=== PATIENT | female | born 1975 | race Caucasian/White ===

== ENCOUNTER 2017-07-02 02:34 | Inpatient (IN) | payer MEDICAID, OTHER ==
[~2017-07-02] VITALS: Ht 170.2 cm; Wt 87.2 kg
[~2017-07-02 02:34] MED LIST: BUSP15TA3 PO; FER300L PO; HYDR-3965 PO; Ibuprofen PO; MULT9LIQ PO; POTA20LI PO; ZOLP5TAB2 PO
[2017-07-02] MEDS ORDERED: normal saline 1000ML IV soln IVB ONE ×2 (03:00→06:45)
[2017-07-02 05:49] LABS: BASOPHILS % (AUTO) 0.3 % (0-1); EOSINOPHILS # (AUTO) 0.2 X10'3 (0-0.9); EOSINOPHILS % (AUTO) 1.1 % (0-6); HEMATOCRIT 46.1 % (35.0-45.0); LYMPHOCYTES # (AUTO) 0.8 X10'3 (1.1-4.8); LYMPHOCYTES % (AUTO) 4.5 % (21-51); MEAN CORPUSCULAR HEMOGLOBIN 29.2 PG (27.0-31.0); MEAN CORPUSCULAR HGB CONC 34.7 % (33.0-36.5); MEAN PLATELET VOLUME 6.7 FL (7.4-10.4); MONOCYTES # (AUTO) 1.2 X10'3 (0-0.9); MONOCYTES % (AUTO) 6.8 % (2-12); NEUTROPHILS # (AUTO) 15.2 X10'3 (1.8-7.7); NEUTROPHILS % (AUTO) 87.3 % (42-75); PLATELET COUNT 134 X10'3 (140-440); RED BLOOD COUNT 5.48 X10'6 (4.20-5.60); WHITE BLOOD COUNT 17.4 X10'3 (4.5-11.0)
[2017-07-02] MEDS ORDERED: ondansetron/PF 4mg/2ml inj IV ONE (06:05)
[2017-07-02 06:15] LABS: ALANINE AMINOTRANSFERASE 134 U/L (12-78); ALBUMIN 2.7 G/DL (3.4-5.0); ALBUMIN/GLOBULIN RATIO 0.9 (1.1-1.5); ALKALINE PHOSPHATASE 245 IU/L (46-116); ANION GAP 17 (8-16); ASPARTATE AMINO TRANSFERASE 650 U/L (10-37); BLOOD UREA NITROGEN 19 MG/DL (7-18); CALCIUM 6.7 MG/DL (8.5-10.1); CHLORIDE 100 MMOL/L (99-107); GLUCOSE 148 MG/DL (70-104); LIPASE 1469 U/L (73-393); SODIUM 133 MMOL/L (135-145); TOTAL CARBON DIOXIDE 16.1 MMOL/L (24-32); TOTAL PROTEIN 5.8 G/DL (6.4-8.2); eGFR 61 ML/MIN
[2017-07-02 06:24] LABS: POTASSIUM 3.2 MMOL/L (3.5-5.1)
[2017-07-02 06:36] LABS: ETHANOL 0.318 GM/DL (0.0-0.010)
[2017-07-02] MEDS ORDERED: LORazepam 2 mg/ml vial IV ONE (06:45)
[2017-07-02 08:10] LABS: ANISOCYTOSIS 3+; MICROCYTOSIS 1+; PLATELET ESTIMATE DECREASED; TEAR DROP CELLS FEW
[2017-07-02] MEDS ORDERED: haloperidol 5mg tablet PO PRN (09:30)
[2017-07-02] MEDS ORDERED: dextrose 50%-water 50ml dispensing syringe IV PRN ×3 (09:30→10:15)
[2017-07-02] MEDS ORDERED: thiamine 100mg/ml 2ml inj. IV ONE (09:30)
[2017-07-02] MEDS ORDERED: haloperidol lactate 5mg/ml inj IM PRN (09:30)
[2017-07-02] MEDS ORDERED: TRAZ-143 PO (09:34)
[2017-07-02] MEDS ORDERED: AMPH5CAP PO (09:34)
[2017-07-02] MEDS ORDERED: proCHLORperazine 10 MG/2 ml inj IV PRN (09:55)
[2017-07-02] MEDS ORDERED: ondansetron/PF 4mg/2ml inj IV PRN (09:55)
[2017-07-02] MEDS ORDERED: magnesium 2GM in 50ml NS 50 ML IV PRN (10:15)
[2017-07-02] MEDS ORDERED: glucagon, human recombinant 1mg kit SUBCUT PRN (10:15)
[2017-07-02] MEDS ORDERED: MESSAGE TO PHARMACY PO ONE (10:15)
[2017-07-02] MEDS ORDERED: insulin Lispro (HumaLOG) vial - multi-dose SQ SCH (10:15)
[2017-07-02] MEDS ORDERED: potassium Cl 20 mEq SR tablet PO PRN (10:15)
[2017-07-02] MEDS ORDERED: dextrose ORAL solution 15 GM/59 ML bottle PO PRN ×2 (10:15)
[2017-07-02] MEDS ORDERED: potassium Cl 40MEQ/NS 500ml 500 ML IV PRN ×2 (10:15)
[2017-07-02] MEDS ORDERED: magnesium 4gm in 100ml NS 100 ML IV PRN (10:15)
[2017-07-02 10:24] LABS: URINE HCG NEGATIVE (NEG)
[2017-07-02 10:35] LABS: URINE AMPHETAMINE SCREEN NEGATIVE (Neg); URINE BARBITUATE SCREEN NEGATIVE (Neg); URINE BENZODIAZEPINES SCREEN NEGATIVE (Neg); URINE CANNABINOID SCREEN NEGATIVE (Neg); URINE COCAINE SCREEN NEGATIVE (Neg); URINE METHADONE SCREEN NEGATIVE (Neg); URINE OPIATE SCREEN NEGATIVE (Neg); URINE PHENCYCLIDINE SCREEN NEGATIVE (Neg)
[2017-07-02] MEDS: thiamine inj. 100 MG, magnesium sulf injection 2 GM, MVI, adult No.4 with vit. K 10 ML ... IV SCH ×4 (10:39)
[2017-07-02 10:47] LABS: HEMOGLOBIN A1C 5.5 % (4.5-6.2)
[2017-07-02] MEDS: diatr meglu/diatrizoate 30ml oral sol.-(3 dose) bottle PO SCH ×3 (11:41→17:34)
[2017-07-02] MEDS: LORazepam 2 mg/ml vial IV PRN ×3 (12:21→21:16)
[2017-07-02] MEDS: CefTRIAXone 2gm/NS 100ml IVPB 100 ML IV SCH ×2 (12:27→17:37)
[2017-07-02] MEDS ORDERED: iohexol 300mg/ml 100ml inj. ONE (17:30)
[2017-07-02] MEDS: potassium Cl 20 mEq SR tablet PO PRN ×2 (19:06→22:49)
[2017-07-02] MEDS: metoprolol tartrate 25mg tablet PO SCH ×2 (19:06→19:10)
[2017-07-02] MEDS: normal saline 1000ml 1,000 ML IV SCH (19:07)
[2017-07-02 20:00] VITALS: BP 128/82
[2017-07-02] MEDS ORDERED: metoprolol tartrate 50mg tablet PO SCH (20:00)
[2017-07-02] MEDS: insulin glargine (Lantus) pen - multi-dose SQ SCH (21:09)
[2017-07-02] MEDS ORDERED: metoprolol tartrate 25mg tablet PO ONE (22:40)
[2017-07-02 22:51] LABS: CLARITY,URINE CLEAR (Clear); COLOR,URINE YELLOW (Yellow); GLUCOSE, URINE NEGATIVE (Neg); KETONES,URINE NEGATIVE (Neg); LEUKOCYTE ESTERASE ,URINE NEGATIVE (Neg); NITRITES, URINE NEGATIVE (Neg); OCCULT BLOOD,URINE SMALL (Neg); PROTEIN,URINE TRACE mg/dl (Neg)
[2017-07-02 22:52] LABS: ALBUMIN 2.5 G/DL (3.4-5.0); ANION GAP 9 (8-16); BLOOD UREA NITROGEN 9 MG/DL (7-18); CALCIUM 7.6 MG/DL (8.5-10.1); CHLORIDE 98 MMOL/L (99-107); GLUCOSE 127 MG/DL (70-104); SODIUM 129 MMOL/L (135-145); TOTAL CARBON DIOXIDE 22.3 MMOL/L (24-32); eGFR > 90 ML/MIN
[2017-07-02 22:53] LABS: POTASSIUM 4.2 MMOL/L (3.5-5.1)
[2017-07-02 22:59] LABS: UA COLLECTION TYPE NON-SPECIFIED
[2017-07-02 23:04] LABS: SQUAMOUS EPITHELIAL CELL,UR MANY /LPF (FEW)
[2017-07-02 23:05] LABS: BACTERIA,URINE 1+ /HPF (Neg); RBC,URINE 0-2 /HPF (0-2); WBC,URINE 0-4 /HPF (0-4)
[2017-07-03] VITALS: BP 114/67
[2017-07-03] MEDS: LORazepam 2 mg/ml vial IV PRN ×6 (00:55→22:28)
[2017-07-03 02:15] LABS: BASOPHILS % (AUTO) 0.3 % (0-1); EOSINOPHILS % (AUTO) 0 % (0-6); HEMATOCRIT 36.4 % (35.0-45.0); HEMOGLOBIN 12.3 g/dl (12.0-16.0); LYMPHOCYTES # (AUTO) 1.3 X10'3 (1.1-4.8); LYMPHOCYTES % (AUTO) 11.1 % (21-51); MEAN CORPUSCULAR HEMOGLOBIN 29.2 PG (27.0-31.0); MEAN CORPUSCULAR HGB CONC 33.8 % (33.0-36.5); MEAN CORPUSCULAR VOLUME 86.6 FL (78-98); MEAN PLATELET VOLUME 7.7 FL (7.4-10.4); MONOCYTES # (AUTO) 0.5 X10'3 (0-0.9); MONOCYTES % (AUTO) 4.7 % (2-12); NEUTROPHILS # (AUTO) 9.6 X10'3 (1.8-7.7); NEUTROPHILS % (AUTO) 83.9 % (42-75); PLATELET COUNT 76 X10'3 (140-440); WHITE BLOOD COUNT 11.4 X10'3 (4.5-11.0)
[2017-07-03 02:29] LABS: ANISOCYTOSIS 3+; LARGE PLATELETS FEW; PLATELET ESTIMATE DECREASED; TARGET CELLS FEW
[2017-07-03 06:48] LABS: BASOPHILS % (AUTO) 0.2 % (0-1); EOSINOPHILS % (AUTO) 0 % (0-6); HEMATOCRIT 36.1 % (35.0-45.0); HEMOGLOBIN 12.4 g/dl (12.0-16.0); LYMPHOCYTES # (AUTO) 1.7 X10'3 (1.1-4.8); LYMPHOCYTES % (AUTO) 18.1 % (21-51); MEAN CORPUSCULAR HEMOGLOBIN 29.4 PG (27.0-31.0); MEAN CORPUSCULAR HGB CONC 34.2 % (33.0-36.5); MEAN CORPUSCULAR VOLUME 85.9 FL (78-98); MEAN PLATELET VOLUME 7.8 FL (7.4-10.4); MONOCYTES # (AUTO) 0.4 X10'3 (0-0.9); MONOCYTES % (AUTO) 4.3 % (2-12); NEUTROPHILS # (AUTO) 7.4 X10'3 (1.8-7.7); NEUTROPHILS % (AUTO) 77.4 % (42-75); PLATELET COUNT 72 X10'3 (140-440); RED CELL DISTRIBUTION WIDTH 25.9 % (11.5-14.5); WHITE BLOOD COUNT 9.6 X10'3 (4.5-11.0)
[2017-07-03 06:52] LABS: INR 1.1 INR; PROTHROMBIN TIME 11.1 SECONDS (9.0-12.0)
[2017-07-03 06:57] LABS: MAGNESIUM 1.8 MG/DL (1.5-2.4)
[2017-07-03] MEDS: metoprolol tartrate 25mg tablet PO SCH ×2 (07:04→19:38)
[2017-07-03] MEDS: CefTRIAXone 2gm/NS 100ml IVPB 100 ML IV SCH (07:05)
[2017-07-03 07:37] VITALS: BP 129/88
[2017-07-03] MEDS: thiamine inj. 100 MG, magnesium sulf injection 2 GM, MVI, adult No.4 with vit. K 10 ML ... IV SCH ×4 (08:31)
[2017-07-03] MEDS ORDERED: FLU VACC QS2017-18 36MOS UP/PF 60 MCG/0.5 ML SYRINGE IMVAC ONE (10:00)
[2017-07-03 11:00] VITALS: BP 115/71
[2017-07-03 12:39] LABS: HEMOGLOBIN 11.4 g/dl (12.0-16.0); MEAN CORPUSCULAR HEMOGLOBIN 29.6 PG (27.0-31.0); MEAN CORPUSCULAR HGB CONC 34.5 % (33.0-36.5); MEAN CORPUSCULAR VOLUME 85.7 FL (78-98); PLATELET COUNT 77 X10'3 (140-440); RED BLOOD COUNT 3.85 X10'6 (4.20-5.60); RED CELL DISTRIBUTION WIDTH 26.5 % (11.5-14.5); WHITE BLOOD COUNT 10.1 X10'3 (4.5-11.0)
[2017-07-03 12:55] LABS: ALANINE AMINOTRANSFERASE 99 U/L (12-78); ALBUMIN 2.2 G/DL (3.4-5.0); ALBUMIN/GLOBULIN RATIO 0.7 (1.1-1.5); ALKALINE PHOSPHATASE 291 IU/L (46-116); ANION GAP 7 (8-16); ASPARTATE AMINO TRANSFERASE 406 U/L (10-37); BILIRUBIN,TOTAL 2.8 MG/DL (0.1-1.0); BLOOD UREA NITROGEN 4 MG/DL (7-18); CALCIUM 7.6 MG/DL (8.5-10.1); CHLORIDE 101 MMOL/L (99-107); GLUCOSE 136 MG/DL (70-104); POTASSIUM 3.5 MMOL/L (3.5-5.1); SODIUM 132 MMOL/L (135-145); TOTAL CARBON DIOXIDE 24.5 MMOL/L (24-32); TOTAL PROTEIN 5.3 G/DL (6.4-8.2); eGFR > 90 ML/MIN
[2017-07-03] MEDS: normal saline 1000ml 1,000 ML IV SCH ×2 (13:25→16:53)
[2017-07-03 20:00] VITALS: BP 132/95
[2017-07-03] MEDS: insulin glargine (Lantus) pen - multi-dose SQ SCH (21:00)
[2017-07-04] VITALS: BP 129/85
[2017-07-04] MEDS: LORazepam 2 mg/ml vial IV PRN ×4 (02:08→22:42)
[2017-07-04] MEDS: normal saline 1000ml 1,000 ML IV SCH (03:22)
[2017-07-04 06:04] LABS: BASOPHILS % (AUTO) 0.3 % (0-1); EOSINOPHILS % (AUTO) 0.2 % (0-6); HEMATOCRIT 29.3 % (35.0-45.0); HEMOGLOBIN 10.1 g/dl (12.0-16.0); LYMPHOCYTES # (AUTO) 1.5 X10'3 (1.1-4.8); LYMPHOCYTES % (AUTO) 19.6 % (21-51); MEAN CORPUSCULAR HEMOGLOBIN 29.9 PG (27.0-31.0); MEAN CORPUSCULAR HGB CONC 34.5 % (33.0-36.5); MEAN CORPUSCULAR VOLUME 86.6 FL (78-98); MEAN PLATELET VOLUME 8.3 FL (7.4-10.4); MONOCYTES # (AUTO) 0.4 X10'3 (0-0.9); MONOCYTES % (AUTO) 4.9 % (2-12); NEUTROPHILS # (AUTO) 5.7 X10'3 (1.8-7.7); PLATELET COUNT 82 X10'3 (140-440); RED BLOOD COUNT 3.38 X10'6 (4.20-5.60); RED CELL DISTRIBUTION WIDTH 27.5 % (11.5-14.5); WHITE BLOOD COUNT 7.7 X10'3 (4.5-11.0)
[2017-07-04 06:36] LABS: MAGNESIUM 1.9 MG/DL (1.5-2.4); POTASSIUM 3.3 MMOL/L (3.5-5.1)
[2017-07-04] MEDS ORDERED: LIDOcaine 1% 30ml vial 5 ML in potassium Cl 40MEQ/NS 500ml 500 ML IV ONE (07:00)
[2017-07-04 07:15] LABS: ANISOCYTOSIS 3+; PLATELET ESTIMATE DECREASED; TARGET CELLS 1+
[2017-07-04 08:00] VITALS: BP 126/87
[2017-07-04] MEDS ORDERED: thiamine 100mg tablet PO ONE (08:00)
[2017-07-04] MEDS: metoprolol tartrate 25mg tablet PO SCH (08:27)
[2017-07-04] MEDS: folic acid 1mg tablet PO SCH (08:27)
[2017-07-04] MEDS: multivitamins, therapeutics tablet PO SCH (08:27)
[2017-07-04 11:00] VITALS: BP 131/82
[2017-07-04 12:17] LABS: ALANINE AMINOTRANSFERASE 68 U/L (12-78); ALBUMIN 2.1 G/DL (3.4-5.0); ALBUMIN/GLOBULIN RATIO 0.6 (1.1-1.5); ALKALINE PHOSPHATASE 279 IU/L (46-116); ANION GAP 4 (8-16); ASPARTATE AMINO TRANSFERASE 162 U/L (10-37); BILIRUBIN,TOTAL 1.6 MG/DL (0.1-1.0); BLOOD UREA NITROGEN 2 MG/DL (7-18); CALCIUM 7.9 MG/DL (8.5-10.1); CHLORIDE 103 MMOL/L (99-107); GLUCOSE 107 MG/DL (70-104); POTASSIUM 3.3 MMOL/L (3.5-5.1); SODIUM 136 MMOL/L (135-145); TOTAL CARBON DIOXIDE 28.6 MMOL/L (24-32); TOTAL PROTEIN 5.4 G/DL (6.4-8.2); eGFR > 90 ML/MIN
[2017-07-04 20:00] VITALS: BP 117/63
[2017-07-04] MEDS: insulin glargine (Lantus) pen - multi-dose SQ SCH (20:18)
[2017-07-05] VITALS: BP 154/92
[2017-07-05] MEDS: LORazepam 2 mg/ml vial IV PRN ×2 (01:01→05:26)
[2017-07-05 06:09] LABS: BASOPHILS % (AUTO) 0.5 % (0-1); EOSINOPHILS % (AUTO) 0.5 % (0-6); HEMATOCRIT 26.5 % (35.0-45.0); HEMOGLOBIN 9.1 g/dl (12.0-16.0); LYMPHOCYTES # (AUTO) 1.3 X10'3 (1.1-4.8); LYMPHOCYTES % (AUTO) 26.1 % (21-51); MEAN CORPUSCULAR HEMOGLOBIN 30.4 PG (27.0-31.0); MEAN CORPUSCULAR HGB CONC 34.6 % (33.0-36.5); MEAN CORPUSCULAR VOLUME 87.8 FL (78-98); MEAN PLATELET VOLUME 7.3 FL (7.4-10.4); MONOCYTES # (AUTO) 0.3 X10'3 (0-0.9); MONOCYTES % (AUTO) 6.1 % (2-12); NEUTROPHILS # (AUTO) 3.3 X10'3 (1.8-7.7); NEUTROPHILS % (AUTO) 66.8 % (42-75); PLATELET COUNT 95 X10'3 (140-440); RED BLOOD COUNT 3.01 X10'6 (4.20-5.60); WHITE BLOOD COUNT 4.9 X10'3 (4.5-11.0)
[2017-07-05 06:28] LABS: MAGNESIUM 1.7 MG/DL (1.5-2.4); POTASSIUM 3.1 MMOL/L (3.5-5.1)
[2017-07-05] MEDS ORDERED: LIDOcaine 1% 30ml vial 5 ML in potassium Cl 40MEQ/NS 500ml 500 ML IV ONE (06:54)
[2017-07-05 08:00] VITALS: BP 138/90
[2017-07-05] MEDS: multivitamins, therapeutics tablet PO SCH (09:07)
[2017-07-05] MEDS: folic acid 1mg tablet PO SCH (09:07)
[2017-07-05] MEDS: LORazepam 1 MG tablet PO PRN ×2 (09:15→11:04)
[2017-07-05 11:00] VITALS: BP 135/95
[2017-07-05 11:20] LABS: HEMATOCRIT 27.9 % (35.0-45.0); HEMOGLOBIN 9.6 g/dl (12.0-16.0); MEAN CORPUSCULAR HEMOGLOBIN 30.1 PG (27.0-31.0); MEAN CORPUSCULAR HGB CONC 34.3 % (33.0-36.5); MEAN CORPUSCULAR VOLUME 87.7 FL (78-98); MEAN PLATELET VOLUME 7.1 FL (7.4-10.4); PLATELET COUNT 110 X10'3 (140-440); RED BLOOD COUNT 3.18 X10'6 (4.20-5.60); RED CELL DISTRIBUTION WIDTH 27.5 % (11.5-14.5); WHITE BLOOD COUNT 5.8 X10'3 (4.5-11.0)
[2017-07-05] MEDS ORDERED: potassium Cl 20 mEq SR tablet PO SCH (11:25)
[2017-07-05 11:33] LABS: ALANINE AMINOTRANSFERASE 52 U/L (12-78); ALBUMIN 2.2 G/DL (3.4-5.0); ALBUMIN/GLOBULIN RATIO 0.6 (1.1-1.5); ALKALINE PHOSPHATASE 253 IU/L (46-116); ANION GAP 5 (8-16); ASPARTATE AMINO TRANSFERASE 76 U/L (10-37); BILIRUBIN,TOTAL 0.9 MG/DL (0.1-1.0); BLOOD UREA NITROGEN 2 MG/DL (7-18); BUN/CREATININE RATIO 3.9 (6.6-38.0); CALCIUM 8.2 MG/DL (8.5-10.1); CHLORIDE 102 MMOL/L (99-107); CREATININE 0.51 MG/DL (0.40-0.90); GLUCOSE 105 MG/DL (70-104); POTASSIUM 3.4 MMOL/L (3.5-5.1); SODIUM 138 MMOL/L (135-145); TOTAL CARBON DIOXIDE 30.6 MMOL/L (24-32); TOTAL PROTEIN 5.8 G/DL (6.4-8.2); eGFR > 90 ML/MIN
[2017-07-05] MEDS ORDERED: FOLI1TAB16 PO (13:05)
[2017-07-05] MEDS ORDERED: THI100T PO (13:05)
[2017-07-05] MEDS ORDERED: MULT-1179 PO (13:05)
[2017-07-05] MEDS ORDERED: POTA20TA10 PO (13:05)
[2017-07-06] MEDS ORDERED: LORazepam 2 mg/ml vial IV PRN (09:30)
[2017-07-06] MEDS ORDERED: LORazepam 1 MG tablet PO PRN (09:30)
[2017-07-06 11:15] LABS: HBSAG SCREEN Negative (Negative); HEP A AB, IGM Negative (Negative); HEP B CORE AB, IGM Negative (Negative); HEPATITIS C ANTIBODY <0.1 s/co ratio (0.0-0.9)
== END 2017-07-05 15:09 | disposition home or self-care (01) | DRG 282 ==
LOC: ER 02:35 → ED HOLD 10:01 → SUR 3N 11:23
PROVIDERS: ADMIT Family Medicine; ATTEND Family Medicine
PROC: BW211ZZ Computerized Tomography (CT Scan) of Abdomen and Pelvis using Low Osmolar Contrast (ICD-10-PCS; principal; 2017-07-02)
PROC: 3E0234Z Introduction of Serum, Toxoid and Vaccine into Muscle, Percutaneous Approach (ICD-10-PCS; 2017-07-03)
DX: K85.20 Alcohol induced acute pancreatitis without necrosis or infection (principal); K76.0 Fatty (change of) liver, not elsewhere classified; K70.11 Alcoholic hepatitis with ascites; E83.51 Hypocalcemia; E86.0 Dehydration; E87.1 Hypo-osmolality and hyponatremia; S06.0X0A Concussion without loss of consciousness, initial encounter; F10.239 Alcohol dependence with withdrawal, unspecified; E66.3 Overweight; E87.6 Hypokalemia; F32.9 Major depressive disorder, single episode, unspecified; W18.39XA Other fall on same level, initial encounter; Y90.8 Blood alcohol level of 240 mg/100 ml or more; F41.9 Anxiety disorder, unspecified; R00.0 Tachycardia, unspecified; Z98.84 Bariatric surgery status; Z79.899 Other long term (current) drug therapy; Z23 Encounter for immunization; Y93.89 Activity, other specified; Y92.89 Other specified places as the place of occurrence of the external cause; Y99.8 Other external cause status; Z68.30 Body mass index [BMI] 30.0-30.9, adult
CPT/HCPCS: 36415; 70450; 71046; 74176; 74177; 76700; 80048; 80053; 80305; 80320; 81001; 81025; 82948; 83036; 83690; 83735; 84132; 84443; 85025; 85027; 85610; 86705; 86706; 86709; 86803; 87070; 87340; 96361; 96374; 96375; 99285; J0696; J1815; J2060; J2405; J3411; J3475; J3480; J3490; J7030; J7060; Q2037; Q9963; Q9967

== ENCOUNTER 2017-09-18 20:46 | Emergency (ER) | payer MEDICAID, OTHER ==
[~2017-09-18] VITALS: Ht 172.7 cm; Wt 72.7 kg
[~2017-09-18 20:46] MED LIST changes: +AMPH5CAP PO; -BUSP15TA3 PO; -FER300L PO; +FOLI1TAB16 PO; -HYDR-3965 PO; -Ibuprofen PO; +MULT-1179 PO; -MULT9LIQ PO; -POTA20LI PO; +POTA20TA10 PO; +TRAZ-143 PO; -ZOLP5TAB2 PO
[2017-09-18 20:58] VITALS: BP 136/82
== END 2017-09-18 21:09 | disposition left against medical advice (07) ==
LOC: ER 20:47
DX: R42 Dizziness and giddiness (principal); Z53.21 Procedure and treatment not carried out due to patient leaving prior to being seen by health care provider

== ENCOUNTER 2018-01-02 14:02 | Emergency (ER) | payer MEDICAID ==
[~2018-01-02] VITALS: Ht 170.2 cm; Wt 93.0 kg
[~2018-01-02 14:02] MED LIST changes: +GABA-532 PO; -TRAZ-143 PO; +TRAZ-218 PO
[2018-01-02] MEDS ORDERED: proCHLORperazine 10 MG/2 ml inj IV ONE (14:30)
[2018-01-02 14:51] LABS: CLARITY,URINE SLIGHTLY CLOUDY (Clear); COLOR,URINE YELLOW (Yellow); GLUCOSE, URINE NEGATIVE (Neg); KETONES,URINE TRACE mg/dl (Neg); LEUKOCYTE ESTERASE ,URINE NEGATIVE (Neg); NITRITES, URINE NEGATIVE (Neg); OCCULT BLOOD,URINE NEGATIVE (Neg); PH,URINE 6.5 (4.8-8.0); PROTEIN,URINE NEGATIVE (Neg)
[2018-01-02 14:52] LABS: PREOP URINE HCG NEGATIVE (NEGATIVE)
[2018-01-02 14:57] LABS: UA COLLECTION TYPE CLN CATCH MIDSTREAM
[2018-01-02 14:58] LABS: RBC,URINE 0-2 /HPF (0-2); SQUAMOUS EPITHELIAL CELL,UR MANY /LPF (FEW); WBC,URINE 0-4 /HPF (0-4)
[2018-01-02 14:59] LABS: BACTERIA,URINE 1+ /HPF (Neg)
[2018-01-02] MEDS ORDERED: LORazepam 2 mg/ml vial IV ONE (15:40)
[2018-01-02] MEDS ORDERED: PROC-8 PEG (15:43)
[2018-01-02 16:55] VITALS: BP 123/98
== END 2018-01-02 16:57 | disposition home or self-care (01) ==
LOC: ER 14:03
DX: G43.909 Migraine, unspecified, not intractable, without status migrainosus (principal); Z79.899 Other long term (current) drug therapy
CPT/HCPCS: 70450; 81001; 81025; 96374; 96375; 99285; J0780; J2060

== ENCOUNTER 2020-12-08 08:43 | Emergency (ER) | payer MEDICAID ==
[~2020-12-08] VITALS: Ht 170.2 cm; Wt 86.4 kg
[~2020-12-08 08:43] MED LIST changes: -MULT-1179 PO; +MULT-25 PO; +PROC-8 PEG; -TRAZ-218 PO; +TRAZ-251 PO
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
[2020-12-08] MEDS ORDERED: ondansetron 4mg rapidly disintigrating tab PO ONE (12:35)
[2020-12-08 12:50] VITALS: BP 143/96
== END 2020-12-08 12:51 | disposition home or self-care (01) ==
LOC: ER 08:44
DX: F41.9 Anxiety disorder, unspecified (principal); G40.909 Epilepsy, unspecified, not intractable, without status epilepticus; F32.9 Major depressive disorder, single episode, unspecified; Z72.89 Other problems related to lifestyle; Z79.899 Other long term (current) drug therapy
CPT/HCPCS: 99283

== ENCOUNTER 2020-12-26 05:27 | Emergency (ER) | payer MEDICAID ==
[~2020-12-26] VITALS: Ht 170.2 cm; Wt 84.1 kg
--- NOTE | 2020-12-26 06:58 | NUR ---
PATIENT IN THE ROOM,PIV PULLE ACCIDENTALLY PULLED OUT PER PATIENT.
[2020-12-26] MEDS ORDERED: ondansetron/PF 4mg/2ml inj IV ONE (07:15)
[2020-12-26] MEDS ORDERED: pantoprazole 40 MG vial IV ONE (07:15)
[2020-12-26] MEDS ORDERED: LORazepam 2 mg/ml vial IV ONE (07:15)
[2020-12-26] MEDS ORDERED: normal saline 1000ML IV soln IVB ONE (07:15)
[2020-12-26 08:32] LABS: BASOPHILS % (AUTO) 0.7 % (0-1); EOSINOPHILS % (AUTO) 0 % (0-6); HEMATOCRIT 26.9 % (35.0-45.0); HEMOGLOBIN 8.4 g/dl (12.0-16.0); LYMPHOCYTES # (AUTO) 0.9 X10'3 (1.1-4.8); LYMPHOCYTES % (AUTO) 12.6 % (21-51); MEAN CORPUSCULAR HEMOGLOBIN 22.9 PG (27.0-31.0); MEAN CORPUSCULAR HGB CONC 31.1 g/dL (33.0-36.5); MEAN CORPUSCULAR VOLUME 73.7 FL (78-98); MEAN PLATELET VOLUME 6.5 FL (7.4-10.4); MONOCYTES # (AUTO) 0.6 X10'3 (0-0.9); MONOCYTES % (AUTO) 8.4 % (2-12); NEUTROPHILS # (AUTO) 5.6 X10'3 (1.8-7.7); NEUTROPHILS % (AUTO) 78.3 % (42-75); PLATELET COUNT 294 X10'3 (140-440); RED BLOOD COUNT 3.65 X10'6 (4.20-5.60); RED CELL DISTRIBUTION WIDTH 23.7 % (11.5-14.5); WHITE BLOOD COUNT 7.2 X10'3 (4.5-11.0)
[2020-12-26 08:42] LABS: PARTIAL THROMBOPLASTIN TIME 25 SECONDS (22-32)
[2020-12-26 08:46] LABS: ALANINE AMINOTRANSFERASE 53 U/L (12-78); ALBUMIN/GLOBULIN RATIO 0.9 (1.1-1.5); ALKALINE PHOSPHATASE 358 IU/L (46-116); ANION GAP 15 (8-16); ASPARTATE AMINO TRANSFERASE 106 U/L (10-37); BILIRUBIN,TOTAL 1.5 MG/DL (0.1-1.0); CALCIUM 7.3 MG/DL (8.5-10.1); CHLORIDE 95 MMOL/L (99-107); ETHANOL < 0.010 GM/DL (0.0-0.010); GLUCOSE 119 MG/DL (70-104); LIPASE 505 U/L (73-393); MAGNESIUM 1.1 MG/DL (1.5-2.4); POTASSIUM 3.1 MMOL/L (3.5-5.1); SODIUM 133 MMOL/L (135-145); TOTAL CARBON DIOXIDE 23.3 MMOL/L (24-32); TOTAL PROTEIN 6.4 G/DL (6.4-8.2)
[2020-12-26 08:56] LABS: BLOOD UREA NITROGEN 2 MG/DL (7-18); CREATININE 0.52 MG/DL (0.40-0.90); eGFR > 90 ML/MIN
[2020-12-26 08:57] LABS: BUN/CREATININE RATIO 3.8 (6.6-38.0)
[2020-12-26 09:02] LABS: PLATELET ESTIMATE NORMAL
[2020-12-26 09:03] LABS: ANISOCYTOSIS 3+; HYPOCHROMASIA 1+; MICROCYTOSIS 1+; POLYCHROMASIA 1+; STOMATOCYTES 2+
[2020-12-26 09:16] LABS: CLARITY,URINE SLIGHTLY CLOUDY (Clear); GLUCOSE, URINE NEGATIVE (Neg); KETONES,URINE >=80 mg/dl (Neg); LEUKOCYTE ESTERASE ,URINE NEGATIVE (Neg); OCCULT BLOOD,URINE NEGATIVE (Neg); PH,URINE 6.5 (4.8-8.0); PROTEIN,URINE 30 mg/dl (Neg)
[2020-12-26 09:26] LABS: NITRITES, URINE NEGATIVE (Neg); UA COLLECTION TYPE NON-SPECIFIED
[2020-12-26 09:27] LABS: COLOR,URINE AMBER (Yellow)
[2020-12-26 09:28] LABS: BACTERIA,URINE 1+ /HPF (Neg); MUCUS STRANDS FEW /LPF (Neg); RBC,URINE NONE SEEN /HPF (0-2); SQUAMOUS EPITHELIAL CELL,UR MODERATE /LPF (FEW); WBC,URINE 0-4 /HPF (0-4)
[2020-12-26] MEDS ORDERED: potassium Cl 20 mEq SR tablet PO ONE (09:30)
[2020-12-26] MEDS ORDERED: PANT-47 PO (09:45)
[2020-12-26] MEDS ORDERED: GABA300C PO (09:45)
[2020-12-26] MEDS ORDERED: NALT50TA PO (09:45)
[2020-12-26] MEDS ORDERED: ONDA4TAB6 PO (09:45)
[2020-12-26] MEDS: magnesium 2GM in 50ml NS 50 ML IV SCH ×2 (10:03→11:22)
[2020-12-26 10:06] VITALS: BP 114/84
== END 2020-12-26 13:05 | disposition home or self-care (01) ==
LOC: ER 05:27
DX: R10.9 Unspecified abdominal pain (principal); R11.2 Nausea with vomiting, unspecified; F10.230 Alcohol dependence with withdrawal, uncomplicated; E87.6 Hypokalemia; E83.42 Hypomagnesemia; Z56.0 Unemployment, unspecified; Z79.899 Other long term (current) drug therapy
CPT/HCPCS: 36415; 80053; 80320; 81001; 83690; 83735; 85008; 85025; 85610; 85730; 93005; 96361; 96365; 96366; 96375; 99284; C9113; J2060; J2405; J3475; J7030

== ENCOUNTER 2022-03-16 05:46 | Inpatient (IN) | payer MEDICAID ==
[~2022-03-16] VITALS: Ht 170.2 cm; Wt 79.5 kg
[~2022-03-16 05:46] MED LIST changes: -FOLI1TAB16 PO; +FOLI1TAB27 PO; +GABA300C PO; +NALT50TA PO; +ONDA4TAB6 PO; +PANT-47 PO; +POTA-197 PO; -POTA20TA10 PO
[2022-03-16] MEDS ORDERED: LORazepam 2 mg/ml vial IV ONE (07:00)
[2022-03-16] MEDS ORDERED: normal saline 1000ml 1,000 ML IV ONE (07:00)
[2022-03-16 08:52] LABS: BASOPHILS % (AUTO) 0.3 % (0-1); EOSINOPHILS % (AUTO) 0 % (0-6); HEMATOCRIT 29.4 % (35.0-45.0); HEMOGLOBIN 9.4 g/dl (12.0-16.0); LYMPHOCYTES # (AUTO) 0.7 X10'3 (1.1-4.8); LYMPHOCYTES % (AUTO) 7.3 % (21-51); MEAN CORPUSCULAR VOLUME 62.7 FL (78-98); MEAN PLATELET VOLUME 6.7 FL (7.4-10.4); MONOCYTES # (AUTO) 0.4 X10'3 (0-0.9); MONOCYTES % (AUTO) 3.7 % (2-12); NEUTROPHILS # (AUTO) 8.8 X10'3 (1.8-7.7); NEUTROPHILS % (AUTO) 88.7 % (42-75); PLATELET COUNT 221 X10'3 (140-440); RED BLOOD COUNT 4.69 X10'6 (4.20-5.60); RED CELL DISTRIBUTION WIDTH 17.8 % (11.5-14.5); WHITE BLOOD COUNT 9.9 X10'3 (4.5-11.0)
[2022-03-16 08:57] LABS: ALANINE AMINOTRANSFERASE 87 U/L (12-78); ALBUMIN 3.4 G/DL (3.4-5.0); ALBUMIN/GLOBULIN RATIO 0.8 (1.1-1.5); ALKALINE PHOSPHATASE 240 IU/L (46-116); ANION GAP 20 (8-16); ASPARTATE AMINO TRANSFERASE 103 U/L (10-37); BILIRUBIN,TOTAL 1.7 MG/DL (0.1-1.0); BLOOD UREA NITROGEN 7 MG/DL (7-18); BUN/CREATININE RATIO 13.2 (6.6-38.0); CALCIUM 8.9 MG/DL (8.5-10.1); CHLORIDE 91 MMOL/L (99-107); CREATININE 0.53 MG/DL (0.40-0.90); GLUCOSE 116 MG/DL (70-104); SODIUM 132 MMOL/L (135-145); TOTAL CARBON DIOXIDE 20.9 MMOL/L (24-32); TOTAL PROTEIN 7.8 G/DL (6.4-8.2); eGFR > 90 ML/MIN
--- NOTE | 2022-03-16 09:00 | NUR ---
Pt stated that she is hungry.
[2022-03-16 09:03] LABS: LIPASE 110 U/L (73-393)
[2022-03-16 09:25] LABS: ANISOCYTOSIS 1+; HYPOCHROMASIA 2+; MICROCYTOSIS 2+; PLATELET ESTIMATE NORMAL
[2022-03-16 09:58] LABS: CLARITY,URINE CLEAR (Clear); COLOR,URINE YELLOW (Yellow); GLUCOSE, URINE NEGATIVE (Neg); KETONES,URINE >=80 mg/dl (Neg); LEUKOCYTE ESTERASE ,URINE NEGATIVE (Neg); NITRITES, URINE NEGATIVE (Neg); OCCULT BLOOD,URINE NEGATIVE (Neg); PROTEIN,URINE 30 mg/dl (Neg); UROBILINOGEN,URINE 0.2 E.U/dL (0.2-1.0)
[2022-03-16 09:59] LABS: UA COLLECTION TYPE CLN CATCH MIDSTREAM
[2022-03-16 10:05] LABS: MUCUS STRANDS FEW /LPF (Neg); SQUAMOUS EPITHELIAL CELL,UR MODERATE /LPF (FEW)
[2022-03-16 10:06] LABS: BACTERIA,URINE 1+ /HPF (Neg); RBC,URINE 0-2 /HPF (0-2); WBC,URINE 0-4 /HPF (0-4)
[2022-03-16 10:15] LABS: URINE AMPHETAMINE SCREEN NEGATIVE (Neg); URINE BARBITUATE SCREEN NEGATIVE (Neg); URINE BENZODIAZEPINES SCREEN NEGATIVE (Neg); URINE CANNABINOID SCREEN POSITIVE (Neg); URINE COCAINE SCREEN NEGATIVE (Neg); URINE METHADONE SCREEN NEGATIVE (Neg); URINE OPIATE SCREEN NEGATIVE (Neg); URINE PHENCYCLIDINE SCREEN NEGATIVE (Neg)
[2022-03-16] MEDS ORDERED: mag hydrox/Alum hydrox/simeth 30ml oral suspension PO PRN ×2 (10:40)
[2022-03-16] MEDS ORDERED: haloperidol 5mg tablet PO PRN (10:40)
[2022-03-16] MEDS ORDERED: loperamide 2mg capsule PO PRN ×2 (10:40)
[2022-03-16] MEDS ORDERED: LORazepam 2 mg/ml vial IV PRN (10:40)
[2022-03-16] MEDS ORDERED: HYDROcodone/acetaminophen 5mg/325mg tablet PO PRN (10:40)
[2022-03-16] MEDS ORDERED: haloperidol lactate 5mg/ml inj IM PRN (10:40)
[2022-03-16] MEDS ORDERED: morphine 2 MG/ML inj. syringe IV PRN ×2 (10:40)
[2022-03-16] MEDS ORDERED: acetaminophen 325mg tablet PO PRN ×2 (10:40)
[2022-03-16] MEDS ORDERED: dextrose 50%-water 50ml dispensing syringe IV PRN (10:40)
[2022-03-16] MEDS ORDERED: dicyclomine 10 MG capsule PO PRN (10:40)
[2022-03-16] MEDS ORDERED: ondansetron/PF 4mg/2ml inj IV PRN (10:40)
[2022-03-16] MEDS ORDERED: HYDROcodone/acetaminophen 10/325mg tab PO PRN (10:40)
[2022-03-16] MEDS ORDERED: magnesium hydroxide 30ml (MOM) UD suspension PO PRN (10:40)
[2022-03-16] MEDS ORDERED: BUSP10TA4 PO (12:22)
[2022-03-16] MEDS ORDERED: PROP10TA10 PO (12:22)
[2022-03-16] MEDS ORDERED: ESCI20TA39 PO (12:22)
[2022-03-16] MEDS ORDERED: ZOLP10TA PO (12:22)
[2022-03-16] MEDS: LORazepam 1 MG tablet PO PRN ×2 (16:12→21:30)
[2022-03-16] MEDS: docusate sod 100mg capsule PO SCH (20:00)
[2022-03-16 21:30] VITALS: BP 92/68
[2022-03-17 02:00] VITALS: BP 135/79
[2022-03-17 06:00] VITALS: BP 116/60
[2022-03-17 07:24] LABS: BASOPHILS % (AUTO) 0.2 % (0-1); EOSINOPHILS # (AUTO) 0.1 X10'3 (0-0.9); EOSINOPHILS % (AUTO) 0.8 % (0-6); HEMATOCRIT 30.7 % (35.0-45.0); HEMOGLOBIN 9.7 g/dl (12.0-16.0); LYMPHOCYTES % (AUTO) 27.4 % (21-51); MEAN CORPUSCULAR HGB CONC 31.7 g/dL (33.0-36.5); MEAN PLATELET VOLUME 8.1 FL (7.4-10.4); MONOCYTES # (AUTO) 0.4 X10'3 (0-0.9); MONOCYTES % (AUTO) 5.3 % (2-12); NEUTROPHILS # (AUTO) 4.9 X10'3 (1.8-7.7); NEUTROPHILS % (AUTO) 66.3 % (42-75); PLATELET COUNT 199 X10'3 (140-440); RED BLOOD COUNT 4.88 X10'6 (4.20-5.60); RED CELL DISTRIBUTION WIDTH 18.6 % (11.5-14.5); WHITE BLOOD COUNT 7.3 X10'3 (4.5-11.0)
[2022-03-17] MEDS ORDERED: pantoprazole 40mg Tablet.DR PO SCH (07:30)
[2022-03-17 07:37] LABS: ALANINE AMINOTRANSFERASE 62 U/L (12-78); ALBUMIN 3.1 G/DL (3.4-5.0); ALBUMIN/GLOBULIN RATIO 0.7 (1.1-1.5); ALKALINE PHOSPHATASE 217 IU/L (46-116); ANION GAP 9 (8-16); ASPARTATE AMINO TRANSFERASE 61 U/L (10-37); BILIRUBIN,TOTAL 0.7 MG/DL (0.1-1.0); BLOOD UREA NITROGEN 5 MG/DL (7-18); BUN/CREATININE RATIO 10.6 (6.6-38.0); CALCIUM 9.3 MG/DL (8.5-10.1); CHLORIDE 97 MMOL/L (99-107); CREATININE 0.47 MG/DL (0.40-0.90); GLUCOSE 102 MG/DL (70-104); MAGNESIUM 1.4 MG/DL (1.5-2.4); POTASSIUM 3.6 MMOL/L (3.5-5.1); SODIUM 133 MMOL/L (135-145); TOTAL CARBON DIOXIDE 26.7 MMOL/L (24-32); TOTAL PROTEIN 7.3 G/DL (6.4-8.2); eGFR > 90 ML/MIN
[2022-03-17] MEDS ORDERED: multivitamins, therapeutics tablet PO SCH (08:00)
[2022-03-17] MEDS: docusate sod 100mg capsule PO SCH (08:00)
[2022-03-17] MEDS ORDERED: LORA-269 PO (08:16)
[2022-03-17 11:00] VITALS: BP 123/76
[2022-03-21] MEDS ORDERED: thiamine 100mg tablet PO SCH (08:00)
[2022-03-21] MEDS ORDERED: folic acid 1mg tablet PO SCH (08:00)
== END 2022-03-17 15:14 | disposition home or self-care (01) | DRG 775 ==
LOC: ER 05:47 → ED HOLD 10:43 → PCU 3S 21:07
PROVIDERS: ADMIT Internal Medicine; ATTEND Internal Medicine
DX: F10.230 Alcohol dependence with withdrawal, uncomplicated (principal); E83.39 Other disorders of phosphorus metabolism; K70.10 Alcoholic hepatitis without ascites; D50.9 Iron deficiency anemia, unspecified; F12.90 Cannabis use, unspecified, uncomplicated; E83.42 Hypomagnesemia; F32.A Depression, unspecified; F41.9 Anxiety disorder, unspecified; Z96.659 Presence of unspecified artificial knee joint; Z98.84 Bariatric surgery status; Z79.899 Other long term (current) drug therapy; Z56.0 Unemployment, unspecified; Z91.199 Patient's noncompliance with other medical treatment and regimen due to unspecified reason
CPT/HCPCS: 36415; 71045; 80053; 80305; 81001; 83690; 83735; 83880; 84100; 84484; 85008; 85025; 87081; 93005; 96361; 96374; 99285; G0378; J2060; J7030

== ENCOUNTER 2022-05-07 15:33 | Emergency (ER) | payer MEDICAID ==
[~2022-05-07] VITALS: Ht 170.2 cm; Wt 77.3 kg
[~2022-05-07 15:33] MED LIST changes: -AMPH5CAP PO; +ESCI20TA39 PO; -FOLI1TAB27 PO; -GABA-532 PO; -GABA300C PO; +LORA-269 PO; -MULT-25 PO; -NALT50TA PO; -ONDA4TAB6 PO; -PANT-47 PO; -POTA-197 PO; -PROC-8 PEG; +PROP10TA10 PO; -TRAZ-251 PO; +ZOLP10TA PO
[2022-05-07 19:02] LABS: BASOPHILS % (AUTO) 0.5 % (0-1); EOSINOPHILS % (AUTO) 0 % (0-6); HEMATOCRIT 30.4 % (35.0-45.0); HEMOGLOBIN 9.4 g/dl (12.0-16.0); LYMPHOCYTES # (AUTO) 0.7 X10'3 (1.1-4.8); LYMPHOCYTES % (AUTO) 9.8 % (21-51); MEAN CORPUSCULAR HEMOGLOBIN 20.6 PG (27.0-31.0); MEAN CORPUSCULAR VOLUME 66.4 FL (78-98); MEAN PLATELET VOLUME 6.6 FL (7.4-10.4); MONOCYTES # (AUTO) 0.2 X10'3 (0-0.9); MONOCYTES % (AUTO) 3.3 % (2-12); NEUTROPHILS # (AUTO) 6.2 X10'3 (1.8-7.7); NEUTROPHILS % (AUTO) 86.4 % (42-75); PLATELET COUNT 403 X10'3 (140-440); RED BLOOD COUNT 4.59 X10'6 (4.20-5.60); RED CELL DISTRIBUTION WIDTH 19.3 % (11.5-14.5); WHITE BLOOD COUNT 7.2 X10'3 (4.5-11.0)
[2022-05-07 19:16] LABS: ALANINE AMINOTRANSFERASE 71 U/L (12-78); ALBUMIN 3.9 G/DL (3.4-5.0); ALBUMIN/GLOBULIN RATIO 0.8 (1.1-1.5); ALKALINE PHOSPHATASE 201 IU/L (46-116); ANION GAP 17 (8-16); ASPARTATE AMINO TRANSFERASE 74 U/L (10-37); BILIRUBIN,TOTAL 1.1 MG/DL (0.1-1.0); BLOOD UREA NITROGEN 8 MG/DL (7-18); BUN/CREATININE RATIO 18.2 (6.6-38.0); CHLORIDE 93 MMOL/L (99-107); CREATININE 0.44 MG/DL (0.40-0.90); GLUCOSE 97 MG/DL (70-104); SODIUM 134 MMOL/L (135-145); TOTAL CARBON DIOXIDE 23.9 MMOL/L (24-32); TOTAL PROTEIN 8.6 G/DL (6.4-8.2); eGFR > 90 ML/MIN
[2022-05-07 19:44] LABS: ANISOCYTOSIS 2+; MICROCYTOSIS 2+; PLATELET ESTIMATE NORMAL
[2022-05-07] MEDS ORDERED: magnesium oxide 400mg tablet PO ONE (20:10)
[2022-05-07] MEDS ORDERED: LORazepam 1 MG tablet PO ONE (20:10)
[2022-05-07] MEDS ORDERED: chlordiazePOXIDE 25mg capsule PO ONE (20:10)
[2022-05-07] MEDS ORDERED: CHLO25CA10 PO (21:25)
[2022-05-07] MEDS ORDERED: PROM12.512 PO (21:25)
[2022-05-07 22:15] VITALS: BP 123/49
== END 2022-05-07 22:21 | disposition home or self-care (01) ==
LOC: ER 15:34
DX: F10.239 Alcohol dependence with withdrawal, unspecified (principal); R56.9 Unspecified convulsions; R11.10 Vomiting, unspecified; F41.9 Anxiety disorder, unspecified; F32.9 Major depressive disorder, single episode, unspecified; Z98.890 Other specified postprocedural states; Z76.0 Encounter for issue of repeat prescription; Z79.899 Other long term (current) drug therapy; Z59.00 Homelessness unspecified; Y90.0 Blood alcohol level of less than 20 mg/100 ml
CPT/HCPCS: 80053; 85008; 85025; 99284